=== PATIENT | male | born 1945 | race Caucasian/White ===

== ENCOUNTER 2018-05-25 12:37 | Inpatient (IN) ==
--- NOTE | 2018-05-25 13:11 | XR ---
EXAM DATE: 05/25/2018 1:09 PM EDT AGE/SEX: 72 years / Male INDICATIONS: Short of breath. Patient states [facility] CLINICAL DATA: This is the patient's initial encounter. Patient reports that signs and symptoms have been present for 1 day and indicates a pain score of 0/10. MEDICAL/SURGICAL HISTORY: None. CABG. Pleurodesis. 5 bypass, 5 stents. COMPARISON: No prior exams available for comparison. FINDINGS: Cardiomegaly and median sternotomy wires. Pacer/ICD device from a left subclavian transvenous approac h noted. Streaky left basilar airspace disease. CONCLUSION: Left lower lobe streaky parenchymal infiltrate. Electronically signed by: Vicente Reece MD 05/25/2018 1:10 PM EDT
--- NOTE | 2018-05-25 13:32 | CT ---
EXAM DATE: 05/25/2018 1:28 PM EDT AGE/SEX: 72 years / Male INDICATIONS: Patient had a dizzy spell causing patient to fall CLINICAL DATA: This is the patient's initial encounter. Patient reports that signs and symptoms have been present for 1 day and indicates a pain score of 5/10. MEDICAL/SURGICAL HISTORY: Congestive heart failure. Chronic obstructive pulmonary disease. Diabet es. hypertension CABG. RADIATION DOSE: 40.03 CTDI (mGy) COMPARISON: No prior exams available for comparison. TECHNIQUE: CT of the head without contrast. Using automated exposure control and adjustment of the mA and/or kV according to patient size, radiation dose was kept as low as reasonably achievable to ob tain optimal diagnostic quality images. DICOM format image data is available electronically for revi ew and comparison. FINDINGS: Cerebrum: The ventricles are normal for age. No evidence of midline shift, mass lesion, hemorrhage or acute infarction. No extraaxial fluid collections are seen. Posterior Fossa: The cerebellum and brainstem are intact. The 4th ventricle is midline. The cerebe llopontine angle is unremarkable. Extracranial: The visualized portion of the orbits is intact. Skull: The calvaria is intact. No evidence of skull fracture. CONCLUSION: 1. Negative CT Head non contrast. . Electronically signed by: Vicente Reece MD 05/25/2018 1:30 PM EDT
[2018-05-25 13:43] LABS: Baso % (Auto) 0.2 % (0.0-2.0); Eos % (Auto) 0.5 % (0.0-4.0); Hematocrit 28.9 % (39.0-51.0); Hemoglobin 10.1 gm/dL (13.0-17.0); Lymph # (Auto) 1.4 th/mm3 (1.0-4.8); Lymph % (Auto) 14.5 % (9.0-44.0); Mean Corpuscular HGB Conc 34.8 % (32.0-36.0); Mean Corpuscular Volume 109.2 fL (80.0-100.0); Mean Platelet Volume 7.2 fL (7.0-11.0); Mono # (Auto) 1.2 th/mm3 (0.0-0.9); Mono % (Auto) 12.3 % (0.0-8.0); Neut # (Auto) 6.9 th/mm3 (1.8-7.7); Neut % (Auto) 72.5 % (16.0-70.0); Platelet Count 186 th/mm3 (150-450); Red Blood Count 2.65 mil/mm3 (4.50-5.90); Red Cell Distribution Width 20.4 % (11.6-17.2); White Blood Count 9.6 th/mm3 (4.0-11.0)
--- NOTE | 2018-05-25 13:43 | ED ---
HPI General Chief Complaint: Fall Stated Complaint: Fall Time Seen by Provider: 05/25/18 12:39 Source: patient and EMS Mode of arrival: EMS Limitations: no limitations History of Present Illness HPI narrative: Patient is a 72-year-old male presenting to the emergency department for evaluation after having a syncopal episode. Patient was attempting to get his motorized scooter onto his car when he states his legs became weak, then his arms became weak and he fell backwards on to the ground hitting his head. Patient states he has been dizzy and weak for several days. Patient reports that he is tolerating fluids but has not been eating well, he states the antibiotics that he is taking for the infection to his left lower leg makes him feel nauseated. He has not vomited. He denies any abdominal pain , chest pain, fever, chills. Past medical history significant for COPD, hypertension, coronary artery disease, type 2 diabetes, patient is oxygen dependent on O2 at 2 L continuously. MD complaint: collapsed Onset (ago): minute(s) -: minutes(s) Prodromal symptoms: lightheaded and vertigo Context: during exertion Injuries sustained associated with event: head Current symptoms: lightheaded and weakness History: history of CAD and pacemaker Treatments prior to arrival: IV fluids Related Data Allergies Allergy/AdvReac Type Severity Reaction Status Date / Time MRI PRECAUTION AdvReac Severe PACEMAKER Uncoded 02/13/10 07:18 (02/13/2010 RV Review of Systems ROS: all other systems reviewed are negative [facility] Medical History Medical History CAD (coronary artery disease) (Chronic) CHF (congestive heart failure) (Chronic) COPD (chronic obstructive pulmonary disease) (Chronic) Diabetes (Chronic) Hypertension (Chronic) Paced cardiac rhythm (Chronic) Surgical History Surgical History Hx of CABG (Resolved) Stented coronary artery (Resolved) Social History Social History Substance History: No History of Abuse Second Hand Smoke Exposure: No Smoking Status: Current some day smoker Tobacco Type: Cigarettes How Often Do You Have a Drink Containing Alcohol: 4 or more times a week Recent Travel in [facility] within the Last 8 Weeks: No Recent Out of Country Travel within the Last 8 Weeks: No Immunization History Tetanus Immunization: >5 Years Hx Influenza Vaccine This Season: Yes Exam Narrative Exam Narrative: GENERAL: Alert, well-developed, well-nourished elderly male. Slightly disheveled, presenting in no acute distress. SKIN: Focused skin assessment warm/dry. HEAD: Atraumatic. Normocephalic. EYES: Pupils equal and round. No scleral icterus. No injection or drainage. ENT: No nasal bleeding or discharge. Mucous membranes pink and moist. NECK: Trachea midline. No JVD. CARDIOVASCULAR: Regular rate and rhythm. 2/6 systolic murmur appreciated. RESPIRATORY: No accessory muscle use. Diminished bilaterally in bases GASTROINTESTINAL: Abdomen soft, non-tender, nondistended. Hepatic and splenic margins not palpable. MUSCULOSKELETAL: No obvious deformities. No clubbing. No cyanosis. No edema. NEUROLOGICAL: Awake and alert. No obvious cranial nerve deficits. Motor grossly within normal limits. Normal speech. PSYCHIATRIC: Appropriate mood and affect; insight and judgment normal. Course Initial Documented Vital Signs Temperature 98.5 F 05/25/18 12:45 Pulse Rate 71 05/25/18 12:45 Respiratory Rate 18 05/25/18 12:45 Blood Pressure 138/62 05/25/18 12:45 Pulse Oximetry 96 05/25/18 12:45 Last Documented Vital Signs Temperature 98.5 F 05/25/18 12:45 Pulse Rate 71 05/25/18 12:45 Respiratory Rate 18 05/25/18 12:45 Blood Pressure 138/62 05/25/18 12:45 Pulse Oximetry 96 05/25/18 12:45 Medical Decision Making MDM Narrative Medical decision making narrative: Patient is a 72-year-old male that presented to emerge department after having a syncopal episode. Labs and imaging ordered and pending. IV access established, patient placed on telemetry monitoring continuous pulse oximetry. Initial EKG shows ventricular paced rhythm, this is reviewed by my attending physician. Patient's potassium level is 1.9, 40 MEQ ordered orally as well as IV. Patient was also given Mag ox 400mg PO x 1 dose. Chest x-ray shows left lower lobe streaky parenchymal infiltrate. Patient was treated empirically with Rocephin and azithromycin. CBC shows a significant bandemia. Stable anemia noted. CT scan of the head and neck are unremarkable. Patient will be admitted Medical Screen Exam Complete: Yes Emergency Medical Condition: Yes Differential Diagnosis Differential Diagnosis: Metabolic abnormality versus cardiac arrhythmia versus contusion versus concussion versus hemorrhage versus UTI versus other Medical Records Medical records reviewed: Yes I reviewed the patient's medical records. Lab Data Result diagrams: 05/25/18 12:54 05/25/18 12:54 Lab Results 05/25/18 05/25/18 05/25/18 Range/Units 12:54 12:54 12:54 WBC 9.6 (4.0-11.0) th/mm3 RBC 2.65 L (4.50-5.90) mil/mm3 Hgb 10.1 L (13.0-17.0) gm/dL Hct 28.9 L (39.0-51.0) % MCV 109.2 H (80.0-100.0) fL MCH 38.0 H (27.0-34.0) pg MCHC 34.8 (32.0-36.0) % RDW 20.4 H (11.6-17.2) % Plt Count 186 (150-450) th/mm3 MPV 7.2 (7.0-11.0) fL Prelim Diff (Auto) Slide review pending Neut % (Auto) 72.5 H (16.0-70.0) % Lymph % (Auto) 14.5 (9.0-44.0) % Warren % (Auto) 12.3 H (0.0-8.0) % Eos % (Auto) 0.5 (0.0-4.0) % Baso % (Auto) 0.2 (0.0-2.0) % Neut # (Auto) 6.9 (1.8-7.7) th/mm3 Lymph # (Auto) 1.4 (1.0-4.8) th/mm3 Warren # (Auto) 1.2 H (0.0-0.9) th/mm3 Eos # (Auto) 0.0 (0.0-0.4) th/mm3 Baso # (Auto) 0.0 (0.0-0.2) th/mm3 WBC Differential Manual diff final Seg Neuts % (Manual) 59 (16-70) % Band Neuts % (Manual) 12 H (0-6) % Lymphocytes % (Manual) 13 (9-44) % Monocytes % (Manual) 12 H (0-8) % Eosinophils % (Manual) 1 (0-4) % Basophils % (Manual) 1 (0-2) % Metamyelocytes % (Man) 1 (0-1) % Myelocytes % (Man) 1 H (0-0) % Abs Neuts (Manual) 7.0 (1.8-7.7) th/mm3 Nucleated RBCs/100 WBC 3 H (0-0) /100 WBC Differential Comment . Platelet Estimate Normal (Normal) Platelet Morphology Normal (Normal) PT 30.6 H (9.8-11.6) sec INR 3.0 Ratio APTT 31.7 H (24.3-30.1) sec Sodium 130 L (136-145) meq/L Potassium 1.9 L* (3.5-5.1) meq/L Chloride 83 L (98-107) meq/L Carbon Dioxide 37.0 H (21.0-32.0) meq/L Anion Gap 10 (5-15) meq/L BUN 18 (7-18) mg/dL Creatinine 1.38 H (0.60-1.30) mg/dL Estimated GFR 51 L (>89) mL/min Random Glucose 146 H (74-106) mg/dL Calcium 8.1 L (8.5-10.1) mg/dL Magnesium 1.6 (1.5-2.5) mg/dL Total Bilirubin 1.0 (0.2-1.0) mg/dL AST 22 (15-37) U/L ALT 20 (12-78) U/L Alkaline Phosphatase 52 (45-117) U/L Troponin I 0.03 (0.02-0.05) ng/mL B-Natriuretic Peptide (0-100) pg/mL Total Protein 6.6 (6.4-8.2) g/dL Albumin 3.2 L (3.4-5.0) g/dL Urine Color (Yellw/Straw) Urine Clarity (Clear) Urine pH (5.0-8.5) Ur Specific [place] (1.002-1.035) Urine Protein (Neg-Trace) mg/dL Urine Glucose (UA) (Negative) mg/dL Urine Ketones (Negative) mg/dL Urine Occult Blood (Negative) Urine Nitrate (Negative) Urine Bilirubin (Negative) Urine Urobilinogen (Less than 2) mg/dL Ur Leukocyte Esterase (Negative) Urine RBC (0-3) /hpf Urine WBC (0-5) /hpf Hyaline Casts (0-3) /lpf Micro UA Comment Ur Microscopic Review Urine Culture Comments 05/25/18 05/25/18 Range/Units 12:54 14:40 WBC (4.0-11.0) th/mm3 RBC (4.50-5.90) mil/mm3 Hgb (13.0-17.0) gm/dL Hct (39.0-51.0) % MCV (80.0-100.0) fL MCH (27.0-34.0) pg MCHC (32.0-36.0) % RDW (11.6-17.2) % Plt Count (150-450) th/mm3 MPV (7.0-11.0) fL Prelim Diff (Auto) Neut % (Auto) (16.0-70.0) % Lymph % (Auto) (9.0-44.0) % Warren % (Auto) (0.0-8.0) % Eos % (Auto) (0.0-4.0) % Baso % (Auto) (0.0-2.0) % Neut # (Auto) (1.8-7.7) th/mm3 Lymph # (Auto) (1.0-4.8) th/mm3 Warren # (Auto) (0.0-0.9) th/mm3 Eos # (Auto) (0.0-0.4) th/mm3 Baso # (Auto) (0.0-0.2) th/mm3 WBC Differential Seg Neuts % (Manual) (16-70) % Band Neuts % (Manual) (0-6) % Lymphocytes % (Manual) (9-44) % Monocytes % (Manual) (0-8) % Eosinophils % (Manual) (0-4) % Basophils % (Manual) (0-2) % Metamyelocytes % (Man) (0-1) % Myelocytes % (Man) (0-0) % Abs Neuts (Manual) (1.8-7.7) th/mm3 Nucleated RBCs/100 WBC (0-0) /100 WBC Differential Comment Platelet Estimate (Normal) Platelet Morphology (Normal) PT (9.8-11.6) sec INR Ratio APTT (24.3-30.1) sec Sodium (136-145) meq/L Potassium (3.5-5.1) meq/L Chloride (98-107) meq/L Carbon Dioxide (21.0-32.0) meq/L Anion Gap (5-15) meq/L BUN (7-18) mg/dL Creatinine (0.60-1.30) mg/dL Estimated GFR (>89) mL/min Random Glucose (74-106) mg/dL Calcium (8.5-10.1) mg/dL Magnesium (1.5-2.5) mg/dL Total Bilirubin (0.2-1.0) mg/dL AST (15-37) U/L ALT (12-78) U/L Alkaline Phosphatase (45-117) U/L Troponin I (0.02-0.05) ng/mL B-Natriuretic Peptide 66 (0-100) pg/mL Total Protein (6.4-8.2) g/dL Albumin (3.4-5.0) g/dL Urine Color Yellow (Yellw/Straw) Urine Clarity Clear (Clear) Urine pH 6.0 (5.0-8.5) Ur Specific [place] 1.012 (1.002-1.035) Urine Protein Negative (Neg-Trace) mg/dL Urine Glucose (UA) Negative (Negative) mg/dL Urine Ketones Negative (Negative) mg/dL Urine Occult Blood Negative (Negative) Urine Nitrate Negative (Negative) Urine Bilirubin Negative (Negative) Urine Urobilinogen Less than 2 (Less than 2) mg/dL Ur Leukocyte Esterase Negative (Negative) Urine RBC Less than 1 (0-3) /hpf Urine WBC 3 (0-5) /hpf Hyaline Casts 3 (0-3) /lpf Micro UA Comment Culture not ind Ur Microscopic Review Not Reportable Urine Culture Comments Culture not ind Imaging Data Radiologist's impression: Cervical Spine CT 05/25/18 12:49 CONCLUSION: 1. No acute fracture or subluxation. 2. Multilevel degenerative spondylosis of the lower cervical spine with multilevel facet arthropathy, as above. 3. Bulky carotid artery calcified plaque. Chest X-Ray 05/25/18 12:49 CONCLUSION: Left lower lobe streaky parenchymal infiltrate. Head CT 05/25/18 12:49 CONCLUSION: 1. Negative CT Head non contrast. . Discharge Plan Discharge Disposition Patient Disposition: 30 Still Patient Discharge Condition Condition: Stable Discharge Details Diagnosis: Syncope, Acute hypokalemia, Bandemia, Pneumonia Physicians Team ED Provider: Yodit Zhang ED Midlevel Provider: Angelita Villalpando Primary Care Provider: [facility],Physician 's Status ED Status: Admitted Patient
[2018-05-25 13:53] LABS: Activated Partial Thrombo Time 31.7 sec (24.3-30.1); Prothrombin Time 30.6 sec (9.8-11.6)
--- NOTE | 2018-05-25 14:02 | CT ---
EXAM DATE: 05/25/2018 1:35 PM EDT AGE/SEX: 72 years / Male INDICATIONS: Dizzy spell causing patient to fall CLINICAL DATA: This is the patient's initial encounter. Patient reports that signs and symptoms have been present for 1 day and indicates a pain score of 4/10. MEDICAL/SURGICAL HISTORY: Congestive heart failure. Chronic obstructive pulmonary disease. Di abetes. Hypertension CABG. RADIATION DOSE: 23.75 CTDI (mGy) COMPARISON: No prior exams available for comparison. TECHNIQUE: Contiguous axial images were obtained using helical multirow detector technique. The vol umetric data was post-processed with multiplanar reconstruction in oblique axial, sagittal, and coron al planes. Using automated exposure control and adjustment of the mA and/or kV according to patient s ize, radiation dose was kept as low as reasonably achievable to obtain optimal diagnostic quality nazia ges. DICOM format image data is available electronically for review and comparison. FINDINGS: OSSEOUS STRUCTURES: Vertebral body heights are maintained. Osseous structures are intact without evid ence for acute bony fracture. Dens is intact. ALIGNMENT: Sagittal alignment is maintained. There is a normal C1-2 relationship. Facets are normal ly aligned. SOFT TISSUES: There is no significant prevertebral soft tissue hematoma. No significant cervical lisbeth nopathy or gross mass. The thyroid appears unremarkable. Visualized lung apices demonstrate mild par aseptal emphysema.. Bulky carotid calcification bilaterally. ADDITIONAL FINDINGS: Multilevel facet hypertrophy most prominently on the right at C4-5. Multilevel d egenerative spondylosis most prominently at C5-6 and C6-7 with disc space narrowing and posterior dis c osteophytes. There is effacement of the left anterior lateral recess at C6-7 secondary to posterior osteophytes. CONCLUSION: 1. No acute fracture or subluxation. 2. Multilevel degenerative spondylosis of the lower cervical spine with multilevel facet arthropathy , as above. 3. Bulky carotid artery calcified plaque. Electronically signed by: Aj Velazquez MD 05/25/2018 2:01 PM EDT
[2018-05-25] MEDS ORDERED: Azithromycin Inj 500 MG in Sodium Chlor 0.9% Inj 250 ML IV.SIG STA (14:03)
[2018-05-25 14:13] LABS: Alanine Aminotransferase 20 U/L (12-78); Albumin 3.2 g/dL (3.4-5.0); Alkaline Phosphatase 52 U/L (45-117); Anion Gap 10 meq/L (5-15); Aspartate Aminotransferase 22 U/L (15-37); Blood Urea Nitrogen 18 mg/dL (7-18); Calcium 8.1 mg/dL (8.5-10.1); Chloride 83 meq/L (98-107); Glomerular Filtration Rate 51 mL/min (>89); Glucose,Random 146 mg/dL (74-106); Magnesium 1.6 mg/dL (1.5-2.5); Sodium 130 meq/L (136-145); Total Protein 6.6 g/dL (6.4-8.2); Troponin I 0.03 ng/mL (0.02-0.05)
[2018-05-25 14:21] LABS: Eosinophils 1 % (0-4); Lymphocytes 13 % (9-44); Metamyelocytes 1 % (0-1); Monocytes 12 % (0-8); Myelocytes 1 % (0-0); Platelet Estimate Normal (Normal); Platelet Morphology Normal (Normal); Potassium 1.9 meq/L (3.5-5.1); Tallied Nucleated RBC 3 (0-0)
[2018-05-25] MEDS ORDERED: Magnesium Oxide 400 MG Tablet PO ONE (14:25)
[2018-05-25 15:19] LABS: Bilirubin,Urine Negative (Negative); Clarity,Urine Clear (Clear); Color,Urine Yellow (Yellw/Straw); Glucose,Urine (UA) Negative (Negative); Hyaline Casts,Urine 3 /lpf (0-3); Leukocyte Esterase,Urine Negative (Negative); Nitrite,Urine Negative (Negative); Specific Gravity,Urine 1.012 (1.002-1.035)
--- NOTE | 2018-05-25 16:20 | P.HP ---
History of Present Illness Primary Care Physician: [facility] History of Present Illness: 72-year-old white male being her for severe hypokalemia and presyncope. Patient is not a reliable historian. Patient was in his usual state of health until earlier today when he was exiting 1 of his doctors offices at the [place] when he is arms and legs began tremoring and was unable to maintain his balance and fell backwards landing on his bottom breaking his fall and then striking his head. He denies having any substantial headaches or any nausea vomiting post fall. Denies having any coughing or shortness of breath or fevers. Says some people came to help him and called 911 and brought him to the ER here. Patient says he is taking an antibiotic for a left lower leg infection. He smells very malodorous and admits that he has not taken a full shower or a full bath, says he is only doing cloth based wiping only on his torso and not his left leg. Says he has a nurse coming out about 3 times a week to address his left leg. He thinks he is taking doxycycline. Says he takes a number of medications but cannot know their names. Lives by himself, stepdaughter is present part-time. Says he wears 2 L of oxygen at home. Pt says he drinks 1-2 drinks each night. Says he takes Coumadin for A. fib. In the Emergency department he had a bandemia noted but was afebrile with no elevated white count. EKG which and apparently reviewed showed a paced rhythm. CXR which I independently reviewed showed no acute infiltrates, radiology however read a left streaky infiltrate. CT head was performed which showed no acute findings. [facility] - History History Provided By: Patient - Medical History Medical History: Medical History (Last Updated 05/25/18 @ 13:40 by LINNEA Kang) CAD (coronary artery disease) CHF (congestive heart failure) COPD (chronic obstructive pulmonary disease) Diabetes Hypertension Paced cardiac rhythm - Surgical History Surgical History: Surgical History (Last Updated 05/25/18 @ 13:41 by LINNEA Kang) Hx of CABG Stented coronary artery - Family History Family History: Family History (Last Updated 05/25/18 @ 16:19 by Jay Martell MD) Other Coronary artery disease Diabetes - Tobacco History Second Hand Smoke Exposure: No Tobacco Use In Past 30 Days: Yes Smoking Status: Current some day smoker Tobacco Type: Cigarettes - Alcohol History How Often Do You Have a Drink Containing Alcohol: 4 or more times a week - Substance Use History Substance History: No History of Abuse - Travel History Recent Travel in the [place] Within the Last 8 Weeks: No Recent Travel Out of the Country Within the Last 8 Weeks: No - Immunization History Tetanus Immunization: >5 Years Hx Influenza Vaccine This Season: Yes Medications and Allergies Active Medications: Active Medications Potassium Chloride (Kcl 20 Meq Premix Inj) 20 meq in 100 mls @ 50 mls/hr IV.SIG Q2H HE Stop: 05/25/18 18:29 Sodium Chloride (Ns Flush) 2 ml IV.FLUSH BID HE Sodium Chloride (Ns Flush) 2 ml IV.FLUSH PRN PRN PRN Reason: FLUSH AFTER USING IV ACCESS Allergies Allergy/AdvReac Type Severity Reaction Status Date / Time MRI PRECAUTION AdvReac Severe PACEMAKER Uncoded 02/13/10 07:18 (02/13/2010 RV Home Medications Medication Instructions Recorded Confirmed Type Aspir-81 05/25/18 History Tylenol-Codeine #3 05/25/18 History albuterol sulfate 05/25/18 History capsaicin 1 applic TOPICAL TID 05/25/18 05/25/18 History carvedilol 25 mg PO DAILY 05/25/18 05/25/18 History diclofenac sodium 4 g TOPICAL QID 05/25/18 05/25/18 History doxycycline hyclate 100 mg PO BID 05/25/18 05/25/18 History furosemide [Lasix] 40 mg PO DAILY 05/25/18 05/25/18 History gabapentin 600 mg PO DAILY 05/25/18 05/25/18 History isosorbide mononitrate 30 mg PO DAILY 05/25/18 05/25/18 History metolazone 5 mg PO EVERY OTHER DAY 05/25/18 05/25/18 History niacin 500 mg PO BID 05/25/18 05/25/18 History omeprazole 20 mg PO DAILY 05/25/18 05/25/18 History ondansetron TID 05/25/18 History potassium chloride 10 meq PO BID 05/25/18 05/25/18 History ropinirole 0.5 mg PO BID 05/25/18 05/25/18 History ropinirole 1 mg PO DAILY 05/25/18 05/25/18 History rosuvastatin 40 mg PO DAILY 05/25/18 05/25/18 History sertraline 100 mg PO DAILY 05/25/18 05/25/18 History silver sulfadiazine 1 applic TOPICAL DAILY 05/25/18 05/25/18 History trazodone 300 mg PO DAILY PRN 05/25/18 05/25/18 History warfarin 5 mg PO Q OTHER DAY 05/25/18 05/25/18 History warfarin 5 mg PO QTUTHSA 05/25/18 05/25/18 History Exam Vital signs: Vital Signs 05/25/18 12:45 Temperature 98.5 F Pulse Rate 71 Respiratory Rate 18 Blood Pressure 138/62 Pulse Oximetry 96 Intake & Output 05/24/18 05/25/18 05/25/18 18:59 06:59 18:59 Weight 115.666 kg Narrative: VS: afebrile GENERAL: Obese, disheveled male, lying in bed, and reclined position SKIN: Warm and dry. EYES: No scleral icterus. No injection or drainage. ENT: NC, NT CARDIOVASCULAR: Regular rate and rhythm. no murmurs RESPIRATORY: No accessory muscle use. Clear to auscultation. Breath sounds equal bilaterally. GASTROINTESTINAL: Abdomen soft, non-tender, nondistended. Extremities: No clubbing, cyanosis, or edema. No obvious deformities. MUSCULOSKELETAL: grossly intact ROM with 5/5 strength in upper and lower extremities proximally; adequate muscle bulk and tone for age and habitus NEUROLOGICAL: Awake and alert. No obvious cranial nerve deficits. No facial droop nor slurred speech noted. PSYCHIATRIC: Appropriate mood and affect; insight and judgment normal. Results - Labs CBC & Chem 7: 05/25/18 12:54 05/25/18 12:54 Labs: Laboratory Results - last 24 hr 05/25/18 05/25/18 05/25/18 12:54 12:54 12:54 WBC 9.6 RBC 2.65 L Hgb 10.1 L Hct 28.9 L MCV 109.2 H MCH 38.0 H MCHC 34.8 RDW 20.4 H Plt Count 186 MPV 7.2 Prelim Diff (Auto) Slide review pending Neut % (Auto) 72.5 H Lymph % (Auto) 14.5 [place] % (Auto) 12.3 H Eos % (Auto) 0.5 Baso % (Auto) 0.2 Neut # (Auto) 6.9 Lymph # (Auto) 1.4 [place] # (Auto) 1.2 H Eos # (Auto) 0.0 Baso # (Auto) 0.0 WBC Differential Manual diff final Seg Neuts % (Manual) 59 Band Neuts % (Manual) 12 H Lymphocytes % (Manual) 13 Monocytes % (Manual) 12 H Eosinophils % (Manual) 1 Basophils % (Manual) 1 Metamyelocytes % (Man) 1 Myelocytes % (Man) 1 H Abs Neuts (Manual) 7.0 Nucleated RBCs/100 WBC 3 H Differential Comment . Platelet Estimate Normal Platelet Morphology Normal PT 30.6 H INR 3.0 APTT 31.7 H Sodium 130 L Potassium 1.9 L* Chloride 83 L Carbon Dioxide 37.0 H Anion Gap 10 BUN 18 Creatinine 1.38 H Estimated GFR 51 L Random Glucose 146 H Calcium 8.1 L Magnesium 1.6 Total Bilirubin 1.0 AST 22 ALT 20 Alkaline Phosphatase 52 Troponin I 0.03 B-Natriuretic Peptide Total Protein 6.6 Albumin 3.2 L Urine Color Urine Clarity Urine pH Ur Specific [place] Urine Protein Urine Glucose (UA) Urine Ketones Urine Occult Blood Urine Nitrate Urine Bilirubin Urine Urobilinogen Ur Leukocyte Esterase Urine RBC Urine WBC Hyaline Casts Micro UA Comment Ur Microscopic Review Urine Culture Comments 05/25/18 05/25/18 12:54 14:40 WBC RBC Hgb Hct MCV MCH MCHC RDW Plt Count MPV Prelim Diff (Auto) Neut % (Auto) Lymph % (Auto) [place] % (Auto) Eos % (Auto) Baso % (Auto) Neut # (Auto) Lymph # (Auto) [place] # (Auto) Eos # (Auto) Baso # (Auto) WBC Differential Seg Neuts % (Manual) Band Neuts % (Manual) Lymphocytes % (Manual) Monocytes % (Manual) Eosinophils % (Manual) Basophils % (Manual) Metamyelocytes % (Man) Myelocytes % (Man) Abs Neuts (Manual) Nucleated RBCs/100 WBC Differential Comment Platelet Estimate Platelet Morphology PT INR APTT Sodium Potassium Chloride Carbon Dioxide Anion Gap BUN Creatinine Estimated GFR Random Glucose Calcium Magnesium Total Bilirubin AST ALT Alkaline Phosphatase Troponin I B-Natriuretic Peptide 66 Total Protein Albumin Urine Color Yellow Urine Clarity Clear Urine pH 6.0 Ur Specific [place] 1.012 Urine Protein Negative Urine Glucose (UA) Negative Urine Ketones Negative Urine Occult Blood Negative Urine Nitrate Negative Urine Bilirubin Negative Urine Urobilinogen Less than 2 Ur Leukocyte Esterase Negative Urine RBC Less than 1 Urine WBC 3 Hyaline Casts 3 Micro UA Comment Culture not ind Ur Microscopic Review Not Reportable Urine Culture Comments Culture not ind - Imaging Impressions Cervical Spine CT 05/25/18 12:49 CONCLUSION: 1. No acute fracture or subluxation. 2. Multilevel degenerative spondylosis of the lower cervical spine with multilevel facet arthropathy, as above. 3. Bulky carotid artery calcified plaque. Chest X-Ray 05/25/18 12:49 CONCLUSION: Left lower lobe streaky parenchymal infiltrate. Head CT 05/25/18 12:49 CONCLUSION: 1. Negative CT Head non contrast. . Caprini VTE Risk Assessment Caprini VTE Risk Assessment: Moderate/High Risk (score >= 2) VTE Pharmacological Exception Reason: High risk for bleeding Caprini Risk Assessment Model: Point Value = 1 Point Value = 2 Point Value = 3 Point Value = 5 Age 41-60 Minor surgery BMI > 25 kg/m2 Swollen legs Varicose veins or History of unexplained or recurrent spontaneous Oral contraceptives or hormone replacement Sepsis (< 1 month) Serious lung disease, including pneumonia (< 1 month) Abnormal pulmonary function Acute myocardial infarction Congestive heart failure (< 1 month) History of inflammatory bowel disease Medical patient at bed rest Age 61-74 Arthroscopic surgery Major open surgery (> 45 min) Laparoscopic surgery (> 45 min) Malignancy Confined to bed (> 72 hours) Immobilizing plaster cast Central venous access Age >= 75 History of VTE Family history of VTE Factor V Leiden Prothrombin [id number] Lupus anticoagulant Anticardiolipin antibodies Elevated serum homocysteine Heparin-induced thrombocytopenia Other congenital or acquired thrombophilia Stroke (< 1 month) Elective arthroplasty Hip, pelvis, or leg fracture Acute spinal cord injury (< 1 month) Prophylaxis Regimen: Total Risk Factor Score Risk Level Prophylaxis Regimen 0-1 Low Early ambulation 2 Moderate Order ONE of the following: *Sequential Compression Device (SCD) *Heparin 5000 units SQ BID 3-4 Higher Order ONE of the following medications: *Heparin 5000 units SQ TID *Enoxaparin/Lovenox 40 mg SQ daily (WT < 150 kg, CrCl > 30 mL/min) *Enoxaparin/Lovenox 30 mg SQ daily (WT < 150 kg, CrCl > 10-29 mL/min) *Enoxaparin/Lovenox 30 mg SQ BID (WT < 150 kg, CrCl > 30 mL/min) AND/OR *Sequential Compression Device (SCD) 5 or more Highest Order ONE of the following medications: *Heparin 5000 units SQ TID (Preferred with Epidurals) *Enoxaparin/Lovenox 40 mg SQ daily (WT < 150 kg, CrCl > 30 mL/min) *Enoxaparin/Lovenox 30 mg SQ daily (WT < 150 kg, CrCl > 10-29 mL/min) *Enoxaparin/Lovenox 30 mg SQ BID (WT < 150 kg, CrCl > 30 mL/min) AND *Sequential Compression Device (SCD) Assessment and Plan - Plan 72-year-old white male being admitted for severe hypokalemia with presyncope Severe hypokalemia and acute hyponatremia ML -Likely the cause of his symptoms, could be worsened with alcohol intake and diuretics 1.9 in the emergency department, given replacement in ER, given magnesium as well, -NS + KCL IVFs -Recheck in a.m. Coronary artery disease /CHF /A. fib Hypertension Presyncope home Coreg, metolazone -Orthostatic vital signs -Resume home Coumadin, with INR being therapeutic Left lower leg cellulitis -At this point clinically resolved and legs appear to have chronic venous status /chronic dermatitis findings COPD Albuterol as needed, oxygen supplementation as needed, 2 L at home at baseline Anxiety - resume home sertraline and trazodone (at lower dose) I independently reviewed the chest x-ray and I do not feel that he has true pneumonia clinically nor radiographically. The patient is on doxycycline has no respiratory symptoms. I feel that his bandemia may be coming from his severe hypokalemia stress-induced state. No elevated white count, will monitor , currently afebrile On Coumadin
[2018-05-25] MEDS: Potassium Chlor 20 mEq Premix 20 MEQ/100 ML PIGGYBACK IV.SIG SCH ×2 (16:34→18:43)
[2018-05-25] MEDS ORDERED: RESP: Albuterol Concentrated 2.5 MG/0.5 ML Neb NEB PRN (16:55)
[2018-05-25] MEDS ORDERED: Potassium Chloride Inj 10 MEQ in Sod Chloride 0.9% Inj 1,000 ML IV.CONT SCH (20:00)
[2018-05-25] MEDS ORDERED: DICLOFENAC SODIUM 4 GM TOPICAL SCH (23:00)
[2018-05-25] MEDS: Acetaminophen 325 MG Tablet PO PRN (23:27)
[2018-05-25] MEDS: Potassium Chloride 10 MEQ ER Capsule PO SCH (23:28)
[2018-05-25] MEDS: Carvedilol 12.5 MG Tablet PO SCH (23:28)
[2018-05-26] MEDS ORDERED: Ketorolac Inj 30 MG/ML (IVP) Vial IV.PUSH ONE (00:11)
[2018-05-26 07:40] LABS: Calcium 8.1 mg/dL (8.5-10.1); Carbon Dioxide 35.7 meq/L (21.0-32.0)
[2018-05-26 08:16] LABS: Potassium 2.3 meq/L (3.5-5.1)
[2018-05-26] MEDS ORDERED: Isosorbide Mononitrate 30 MG ER 24HR Tablet (Imdur) PO SCH (09:00)
[2018-05-26] MEDS: Furosemide 40 MG Tablet PO SCH (09:24)
[2018-05-26] MEDS: Carvedilol 12.5 MG Tablet PO SCH ×2 (09:24→21:29)
[2018-05-26] MEDS: Sertraline 100 MG Tablet PO SCH (09:25)
[2018-05-26] MEDS: Pantoprazole Sodium 20 MG DR Tablet PO SCH (09:25)
[2018-05-26] MEDS: Potassium Chloride 10 MEQ ER Capsule PO SCH ×2 (09:25→21:14)
[2018-05-26] MEDS ORDERED: Potassium Chloride Inj 20 MEQ, Magnesium Sulfate Inj 2 GM in Sod Chloride 0.9% Inj 1,00... IV.SIG ONE (11:00)
--- NOTE | 2018-05-26 12:01 | ECG ---
Date Performed: 05/25/2018 Time Performed: 12:49:22 PTAGE: 72 years EK% Ventricular Pacing Suspected Underlying Rhythm is atrial firbrillation ABNORMAL RHYTHM ECG PREVIOUS TRACING : 02/13/2010 02.34 Since the previous tracing, no significant change noted DOCTOR: Destin Small Interpretating Date/Time 05/26/2018 11:59:13
--- NOTE | 2018-05-26 13:11 | P.PN ---
Subjective Interval history: Nursing denies any deterioration since last night except for potassium of being low at 2.3. Patient himself says he feels much better today. Physical Exam Vital signs: Vital Signs 05/25/18 16:55 05/25/18 18:04 05/25/18 18:08 Temperature 98.8 F 98.3 F Pulse Rate 77 78 Respiratory Rate 20 18 Blood Pressure 138/62 128/66 Pulse Oximetry 97 05/25/18 20:00 05/26/18 00:00 05/26/18 04:00 Temperature 97.3 F L 97.3 F L 97.1 F L Pulse Rate 75 85 69 Respiratory Rate 18 18 18 Blood Pressure 183/88 H 112/63 112/57 L Pulse Oximetry 96 99 94 L 05/26/18 04:05 05/26/18 04:10 Temperature Pulse Rate 75 78 Respiratory Rate Blood Pressure 82/51 L 79/47 L Pulse Oximetry 94 L 97 Intake & Output 05/25/18 05/26/18 05/26/18 18:59 06:59 18:59 Intake Total 100 / 100 480 / 480 415 / 415 Output Total 600 / 600 Balance 100 / 100 -120 / -120 415 / 415 Weight 115.666 kg 119 kg Intake: IV 100 / 100 415 / 415 KCl Inj 10 MEQ In NS Inj 1,000 415 / 415 ML @ 42 mls/hr IV.CONT .[id number] [facility] Rx#:[id number] KCl 20 mEq Premix Inj 20 meq In 100 / 100 100 ml @ 50 mls/hr IV.SIG Q2H HE Rx#:[id number] Oral 480 / 480 Output: Urine 600 / 600 Other: # Voids 1 # Bowel Movements 0 Narrative: 4/5 proximal upper extremity strength bilaterally Awake alert Clear lungs bilaterally, unlabored breathing Results - Labs CBC & Chem 7: 05/25/18 12:54 05/26/18 06:10 Laboratory Results - last 24 hr 05/25/18 05/25/18 05/25/18 12:54 12:54 12:54 WBC 9.6 RBC 2.65 L Hgb 10.1 L Hct 28.9 L MCV 109.2 H MCH 38.0 H MCHC 34.8 RDW 20.4 H Plt Count 186 MPV 7.2 Prelim Diff (Auto) Slide review pending Neut % (Auto) 72.5 H Lymph % (Auto) 14.5 [place] % (Auto) 12.3 H Eos % (Auto) 0.5 Baso % (Auto) 0.2 Neut # (Auto) 6.9 Lymph # (Auto) 1.4 [place] # (Auto) 1.2 H Eos # (Auto) 0.0 Baso # (Auto) 0.0 WBC Differential Manual diff final Seg Neuts % (Manual) 59 Band Neuts % (Manual) 12 H Lymphocytes % (Manual) 13 Monocytes % (Manual) 12 H Eosinophils % (Manual) 1 Basophils % (Manual) 1 Metamyelocytes % (Man) 1 Myelocytes % (Man) 1 H Abs Neuts (Manual) 7.0 Nucleated RBCs/100 WBC 3 H Differential Comment . Platelet Estimate Normal Platelet Morphology Normal PT 30.6 H INR 3.0 APTT 31.7 H Sodium 130 L Potassium 1.9 L* Chloride 83 L Carbon Dioxide 37.0 H Anion Gap 10 BUN 18 Creatinine 1.38 H Estimated GFR 51 L POC Glucose Random Glucose 146 H Calcium 8.1 L Magnesium 1.6 Total Bilirubin 1.0 AST 22 ALT 20 Alkaline Phosphatase 52 Troponin I 0.03 B-Natriuretic Peptide Total Protein 6.6 Albumin 3.2 L Urine Color Urine Clarity Urine pH Ur Specific [place] Urine Protein Urine Glucose (UA) Urine Ketones Urine Occult Blood Urine Nitrate Urine Bilirubin Urine Urobilinogen Ur Leukocyte Esterase Urine RBC Urine WBC Hyaline Casts Micro UA Comment Ur Microscopic Review Urine Culture Comments 05/25/18 05/25/18 05/25/18 12:54 14:40 21:20 WBC RBC Hgb Hct MCV MCH MCHC RDW Plt Count MPV Prelim Diff (Auto) Neut % (Auto) Lymph % (Auto) [place] % (Auto) Eos % (Auto) Baso % (Auto) Neut # (Auto) Lymph # (Auto) [place] # (Auto) Eos # (Auto) Baso # (Auto) WBC Differential Seg Neuts % (Manual) Band Neuts % (Manual) Lymphocytes % (Manual) Monocytes % (Manual) Eosinophils % (Manual) Basophils % (Manual) Metamyelocytes % (Man) Myelocytes % (Man) Abs Neuts (Manual) Nucleated RBCs/100 WBC Differential Comment Platelet Estimate Platelet Morphology PT INR APTT Sodium Potassium Chloride Carbon Dioxide Anion Gap BUN Creatinine Estimated GFR POC Glucose 202 H Random Glucose Calcium Magnesium Total Bilirubin AST ALT Alkaline Phosphatase Troponin I B-Natriuretic Peptide 66 Total Protein Albumin Urine Color Yellow Urine Clarity Clear Urine pH 6.0 Ur Specific [place] 1.012 Urine Protein Negative Urine Glucose (UA) Negative Urine Ketones Negative Urine Occult Blood Negative Urine Nitrate Negative Urine Bilirubin Negative Urine Urobilinogen Less than 2 Ur Leukocyte Esterase Negative Urine RBC Less than 1 Urine WBC 3 Hyaline Casts 3 Micro UA Comment Culture not ind Ur Microscopic Review Not Reportable Urine Culture Comments Culture not ind 05/26/18 06:10 WBC RBC Hgb Hct MCV MCH MCHC RDW Plt Count MPV Prelim Diff (Auto) Neut % (Auto) Lymph % (Auto) [place] % (Auto) Eos % (Auto) Baso % (Auto) Neut # (Auto) Lymph # (Auto) [place] # (Auto) Eos # (Auto) Baso # (Auto) WBC Differential Seg Neuts % (Manual) Band Neuts % (Manual) Lymphocytes % (Manual) Monocytes % (Manual) Eosinophils % (Manual) Basophils % (Manual) Metamyelocytes % (Man) Myelocytes % (Man) Abs Neuts (Manual) Nucleated RBCs/100 WBC Differential Comment Platelet Estimate Platelet Morphology PT INR APTT Sodium 131 L Potassium 2.3 L* Chloride 85 L Carbon Dioxide 35.7 H Anion Gap 10 BUN 16 Creatinine 1.24 Estimated GFR 57 L POC Glucose Random Glucose 141 H Calcium 8.1 L Magnesium Total Bilirubin AST ALT Alkaline Phosphatase Troponin I B-Natriuretic Peptide Total Protein Albumin Urine Color Urine Clarity Urine pH Ur Specific [place] Urine Protein Urine Glucose (UA) Urine Ketones Urine Occult Blood Urine Nitrate Urine Bilirubin Urine Urobilinogen Ur Leukocyte Esterase Urine RBC Urine WBC Hyaline Casts Micro UA Comment Ur Microscopic Review Urine Culture Comments - Imaging Impressions Cervical Spine CT 05/25/18 12:49 CONCLUSION: 1. No acute fracture or subluxation. 2. Multilevel degenerative spondylosis of the lower cervical spine with multilevel facet arthropathy, as above. 3. Bulky carotid artery calcified plaque. Chest X-Ray 05/25/18 12:49 CONCLUSION: Left lower lobe streaky parenchymal infiltrate. Head CT 05/25/18 12:49 CONCLUSION: 1. Negative CT Head non contrast. . Assessment and Plan - Plan 72-year-old white male being admitted for severe hypokalemia with presyncope Severe hypokalemia and acute hyponatremia ML -likely combination of alcohol intake and diuretics -Mildly improved 2.3 - adding on mg and KCL -recheck in AM Coronary artery disease /CHF /A. fib Hypertension Presyncope home Coreg, metolazone -Orthostatic vital signs -home Coumadin, with INR being therapeutic Left lower leg cellulitis -At this point clinically resolved and legs appear to have chronic venous status /chronic dermatitis findings COPD Albuterol as needed, oxygen supplementation as needed, 2 L at home at baseline Anxiety - home sertraline and trazodone (at lower dose) On Coumadin
[2018-05-26] MEDS: Gabapentin 300 MG Capsule PO SCH (21:29)
[2018-05-27 06:02] LABS: Calcium 8.6 mg/dL (8.5-10.1)
[2018-05-27 06:07] LABS: Potassium 2.4 meq/L (3.5-5.1)
[2018-05-27] MEDS ORDERED: Potassium Chloride 25 MEQ Effervescent Tablet PO ONE (06:14)
[2018-05-27] MEDS: Potassium Chlor 20 mEq Premix 20 MEQ/100 ML PIGGYBACK IV.SIG SCH ×2 (06:37→09:24)
[2018-05-27] MEDS: Furosemide 40 MG Tablet PO SCH (09:21)
[2018-05-27] MEDS: Sertraline 100 MG Tablet PO SCH (09:23)
[2018-05-27] MEDS: Potassium Chloride 10 MEQ ER Capsule PO SCH (09:23)
[2018-05-27] MEDS: Pantoprazole Sodium 20 MG DR Tablet PO SCH (09:23)
[2018-05-27] MEDS: Carvedilol 12.5 MG Tablet PO SCH ×2 (09:23→21:55)
[2018-05-27] MEDS: metOLazone 5 MG Tablet PO SCH (09:25)
[2018-05-27] MEDS: Lisinopril 5 MG Tablet PO SCH (10:54)
--- NOTE | 2018-05-27 15:11 | P.PN ---
Subjective Interval history: Nursing denies any deterioration since last night. Patient himself has no new complaints. His potassium level still low. Says he was taking water pills meaning his diuretics for lower extremity edema. Physical Exam Vital signs: Vital Signs 05/26/18 16:00 05/26/18 16:54 05/26/18 20:00 Temperature 97.6 F 98 F Pulse Rate 73 75 71 Respiratory Rate 17 16 Blood Pressure 103/61 131/62 Pulse Oximetry 97 98 05/27/18 00:00 05/27/18 04:00 05/27/18 08:00 Temperature 98.2 F 98.3 F 97.2 F L Pulse Rate 69 70 72 Respiratory Rate 16 16 20 Blood Pressure 97/52 L 108/52 L 104/51 L Pulse Oximetry 99 99 98 05/27/18 09:00 05/27/18 12:00 Temperature 97.3 F L Pulse Rate 71 70 Respiratory Rate 19 Blood Pressure 104/57 L Pulse Oximetry 98 Intake & Output 05/26/18 05/27/18 05/27/18 18:59 06:59 18:59 Intake Total 2389 / 2389 580 / 580 200 / 200 Output Total 1800 / 1800 1300 / 1300 Balance 589 / 589 -720 / -720 200 / 200 Weight 119.4 kg Intake: IV 1429 / 1429 100 / 100 200 / 200 KCl Inj 10 MEQ In NS Inj 1,000 415 / 415 ML @ 42 mls/hr IV.CONT .[id number] [facility] Rx#:[id number] KCl 20 mEq Premix Inj 20 meq In 200 / 200 100 ml @ 50 mls/hr IV.SIG Q2H [facility] Rx#:[id number] KCl Inj 20 MEQ Magnesium 1014 / 1014 Sulfate Inj 2 GM In NS Inj 1, 000 ML @ 500 mls/hr IV.SIG ONCE ONE Rx#:[id number] Oral 960 / 960 480 / 480 Output: Urine 1800 / 1800 1300 / 1300 Other: # Voids 2 # Bowel Movements 0 Narrative: Heart sounds regular rhythm, no murmurs Clear lungs bilaterally, unlabored breathing No lower extremity edema Results - Labs CBC & Chem 7: 05/25/18 12:54 05/27/18 05:08 Laboratory Results - last 24 hr 05/27/18 05/27/18 05:08 05:08 Sodium 134 L Potassium 2.4 L* Chloride 88 L Carbon Dioxide 38.0 H Anion Gap 8 BUN 16 Creatinine 1.28 Estimated GFR 55 L Random Glucose 162 H Calcium 8.6 Magnesium 2.2 D Assessment and Plan - Plan 72-year-old white male being admitted for severe hypokalemia with presyncope Severe hypokalemia and acute hyponatremia likely combination of alcohol intake and diuretics -Still persisting, will double potassium and magnesium p.o. intake, and on Spironolactone and lisinopril, hold metolazone and Lasix by half down to 20 mg daily -recheck in AM as well as BMP ML - likely 2/2 diuretics, will hold Coronary artery disease /CHF /A. fib Hypertension Presyncope home Coreg, metolazone -Orthostatic vital signs -home Coumadin, with INR being therapeutic Left lower leg cellulitis -At this point clinically resolved and legs appear to have chronic venous status /chronic dermatitis findings, continue home doxycycline COPD Albuterol as needed, oxygen supplementation as needed, 2 L at home at baseline Anxiety - home sertraline and trazodone (at lower dose) On Coumadin
[2018-05-27] MEDS: Spironolactone 25 MG Tablet PO SCH (17:55)
[2018-05-27] MEDS: Gabapentin 300 MG Capsule PO SCH (21:54)
[2018-05-28] MEDS: Potassium Chloride 10 MEQ ER Capsule PO SCH (00:35)
[2018-05-28 05:33] LABS: Hematocrit 25.3 % (39.0-51.0); Hemoglobin 8.7 gm/dL (13.0-17.0); Mean Corpuscular HGB Conc 34.5 % (32.0-36.0); Mean Corpuscular Hemoglobin 37.8 pg (27.0-34.0); Mean Corpuscular Volume 109.7 fL (80.0-100.0); Mean Platelet Volume 7.1 fL (7.0-11.0); Platelet Count 143 th/mm3 (150-450); White Blood Count 7.2 th/mm3 (4.0-11.0)
[2018-05-28 05:57] LABS: Carbon Dioxide 36.6 meq/L (21.0-32.0); Potassium 3.1 meq/L (3.5-5.1)
[2018-05-28] MEDS ORDERED: Sodium Chlor 0.9% Inj 500 ML IV.SIG SCH ×2 (07:00→19:00)
[2018-05-28] MEDS: Sertraline 100 MG Tablet PO SCH (08:38)
[2018-05-28] MEDS: Furosemide 20 MG Tablet PO SCH (08:38)
[2018-05-28] MEDS: Lisinopril 5 MG Tablet PO SCH (08:38)
[2018-05-28] MEDS: Pantoprazole Sodium 20 MG DR Tablet PO SCH (08:38)
[2018-05-28] MEDS: Carvedilol 12.5 MG Tablet PO SCH ×2 (08:38→21:05)
[2018-05-28] MEDS: Spironolactone 25 MG Tablet PO SCH ×2 (08:38→19:30)
--- NOTE | 2018-05-28 13:04 | P.PN ---
Subjective Interval history: Patient seen and examined this morning. 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 He denies syncopal symptoms, chest pain , shortness of breath. He has chronic back and leg pain for many years. He uses 2 L oxygen at home. He lives by himself and states that he was able to perform all his ADLs. Physical Exam Vital signs: Vital Signs 05/27/18 16:00 05/27/18 17:39 05/27/18 20:00 Temperature 96.8 F L 97.3 F L Pulse Rate 71 86 80 Respiratory Rate 20 20 Blood Pressure 104/65 101/56 L Pulse Oximetry 98 94 L 05/28/18 00:00 05/28/18 04:00 05/28/18 08:00 Temperature 97.5 F L 97.9 F 96.4 F L Pulse Rate 71 67 72 Respiratory Rate 18 18 20 Blood Pressure 94/49 L 86/56 L 99/53 L Pulse Oximetry 97 95 99 05/28/18 09:00 05/28/18 12:00 05/28/18 12:24 Temperature 97.1 F L Pulse Rate 54 L 73 Respiratory Rate 19 Blood Pressure 98/56 L Pulse Oximetry 98 99 Intake & Output 05/27/18 05/28/18 05/28/18 18:59 06:59 18:59 Intake Total 1160 / 1160 480 / 480 Output Total 150 / 150 Balance 1160 / 1160 330 / 330 Weight 121.8 kg 115.747 kg Intake: IV 200 / 200 KCl 20 mEq Premix Inj 20 meq In 200 / 200 100 ml @ 50 mls/hr IV.SIG Q2H HE Rx#:[id number] Oral 960 / 960 480 / 480 Output: Urine 150 / 150 Other: # Voids 4 1 Date of Last Bowel Movement 05/27/18 # Bowel Movements 0 Narrative: Gen: Patient lying in bed in NAD, nasal cannula in place Skin: Warm and dry CV: Regular rate and rhythm Resp: CTAB, unlabored breathing Abd: Normoactive bowel sounds, NTTP Ext: No cyanosis or edema, calves nontender to palpation Psych: Normal affect Results - Labs CBC & Chem 7: 05/28/18 05:18 05/28/18 05:18 Laboratory Results - last 24 hr 05/28/18 05/28/18 05:18 05:18 WBC 7.2 RBC 2.30 L Hgb 8.7 L Hct 25.3 L MCV 109.7 H MCH 37.8 H MCHC 34.5 RDW 20.0 H Plt Count 143 L MPV 7.1 Sodium 131 L Potassium 3.1 L Chloride 88 L Carbon Dioxide 36.6 H Anion Gap 6 BUN 17 Creatinine 1.51 H Estimated GFR 46 L Random Glucose 133 H Calcium 8.0 L Assessment and Plan - Assessment (1) Acute hypokalemia Code(s): E87.6 - Hypokalemia Status: Acute (2) Syncope Code(s): R55 - Syncope and collapse Status: Acute - Plan 72-year-old white male being admitted for severe hypokalemia with presyncope Severe hypokalemia and acute hyponatremia -Likely combination of alcohol intake and diuretics -Potassium improved to 3.1 today with sodium of 131 -Hold spironolactone and lisinopril, hold metolazone and Lasix -also due to hypotension -Recheck BMP in the morning ML -Creatinine elevated at 1.51, was WNL on previous day -Avoid nephrotoxic agents -Holding Lisinopril and Lasix Coronary artery disease/CHF -Will continue Coreg once BP stabilized A. fib -Continue Coumadin -Pharmacy consult Hypertension -Has been hypotensive -Holding home BP meds Presyncope -Orthostatic vital signs with positive from supine to sitting position with drop in systolic blood pressure from 112-82 Left lower leg cellulitis -At this point clinically resolved and legs appear to have chronic venous status /chronic dermatitis findings -Continue home doxycycline COPD Albuterol as needed, oxygen supplementation as needed, 2 L at home at baseline Anxiety -Continue home sertraline and trazodone (at lower dose) DVT prophylaxis On Coumadin (2) Syncope Qualifiers: Syncope type: unspecified Qualified Code(s): R55 - Syncope and collapse
[2018-05-28] MEDS ORDERED: Warfarin Consult Pharmacy OTHER PRN (16:37)
[2018-05-28 18:08] LABS: INR 1.8 Ratio; Prothrombin Time 18.7 sec (9.8-11.6)
[2018-05-28] MEDS: Gabapentin 300 MG Capsule PO SCH (21:06)
[2018-05-29 05:52] LABS: Hematocrit 27.2 % (39.0-51.0); Hemoglobin 9.4 gm/dL (13.0-17.0); Mean Corpuscular HGB Conc 34.5 % (32.0-36.0); Mean Corpuscular Hemoglobin 37.8 pg (27.0-34.0); Mean Corpuscular Volume 109.5 fL (80.0-100.0); Platelet Count 147 th/mm3 (150-450); Red Blood Count 2.48 mil/mm3 (4.50-5.90); Red Cell Distribution Width 20.1 % (11.6-17.2); White Blood Count 6.4 th/mm3 (4.0-11.0)
[2018-05-29 05:56] LABS: INR 1.7 Ratio; Prothrombin Time 17.4 sec (9.8-11.6)
[2018-05-29 06:18] LABS: Calcium 8.4 mg/dL (8.5-10.1); Carbon Dioxide 35.5 meq/L (21.0-32.0); Potassium 3.8 meq/L (3.5-5.1)
--- NOTE | 2018-05-29 07:34 | P.PN ---
Subjective Interval history: Patient seen and examined this morning. States no complaints. No chest pain, shortness of breath, dizziness. 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 Physical Exam Vital signs: Vital Signs 05/28/18 08:00 05/28/18 09:00 05/28/18 12:00 Temperature 96.4 F L 97.1 F L Pulse Rate 72 54 L 73 Respiratory Rate 20 19 Blood Pressure 99/53 L 98/56 L Pulse Oximetry 99 98 05/28/18 12:24 05/28/18 16:00 05/28/18 20:00 Temperature 96.2 F L 98.1 F Pulse Rate 70 72 Respiratory Rate 20 18 Blood Pressure 99/64 L 115/63 Pulse Oximetry 99 98 98 05/29/18 00:00 05/29/18 04:00 Temperature 97.4 F L 97.5 F L Pulse Rate 72 73 Respiratory Rate 16 18 Blood Pressure 115/56 L 115/56 L Pulse Oximetry 97 100 Intake & Output 05/28/18 05/29/18 05/29/18 18:59 06:59 18:59 Intake Total 560 / 560 660 / 660 Output Total 650 / 650 1650 / 1650 Balance -90 / -90 -990 / -990 Weight 115.747 kg 114.5 kg Intake: Oral 560 / 560 660 / 660 Output: Urine 650 / 650 1650 / 1650 Other: Date of Last Bowel Movement 05/27/18 Narrative: Gen: Patient lying in bed in NAD, nasal cannula in place Skin: Warm and dry CV: Regular rate and rhythm Resp: CTAB, unlabored breathing Abd: Normoactive bowel sounds, NTTP Ext: No cyanosis or edema, calves nontender to palpation Psych: Normal affect, a little restless Results - Labs CBC & Chem 7: 05/29/18 04:52 05/29/18 04:52 Laboratory Results - last 24 hr 05/28/18 05/29/18 05/29/18 17:47 04:52 04:52 WBC 6.4 RBC 2.48 L Hgb 9.4 L Hct 27.2 L MCV 109.5 H MCH 37.8 H MCHC 34.5 RDW 20.1 H Plt Count 147 L MPV 7.0 PT 18.7 H D INR 1.8 Sodium 135 L Potassium 3.8 Chloride 93 L Carbon Dioxide 35.5 H Anion Gap 7 BUN 11 Creatinine 0.91 Estimated GFR 82 L Random Glucose 103 Calcium 8.4 L 05/29/18 04:52 WBC RBC Hgb Hct MCV MCH MCHC RDW Plt Count MPV PT 17.4 H INR 1.7 Sodium Potassium Chloride Carbon Dioxide Anion Gap BUN Creatinine Estimated GFR Random Glucose Calcium Assessment and Plan - Assessment (1) Acute hypokalemia Code(s): E87.6 - Hypokalemia Status: Acute (2) Syncope Code(s): R55 - Syncope and collapse Status: Acute - Plan 72-year-old white male being admitted for severe hypokalemia with presyncope Severe hypokalemia and acute hyponatremia -Likely combination of alcohol intake and diuretics -Potassium improved to 3.8 today with sodium of 135 -Hold spironolactone and lisinopril, hold metolazone and Lasix also due to hypotension -Recheck BMP in the morning ML -Creatinine elevated wnl at 0.91 today -Avoid nephrotoxic agents Coronary artery disease/CHF -Will continue Coreg once BP stabilized A. fib -Continue Coumadin -Pharmacy consult Hypertension -Has been hypotensive -Holding home BP meds Presyncope -Orthostatic vital signs with positive from supine to sitting position with drop in systolic blood pressure from 112 to 82 Left lower leg cellulitis -At this point clinically resolved and legs appear to have chronic venous status /chronic dermatitis findings -Continue home doxycycline until completion of dose COPD Albuterol as needed, oxygen supplementation as needed, 2 L at home at baseline Anxiety -Continue home sertraline and trazodone (at lower dose) DVT prophylaxis On Coumadin Addendum: Patient should have been ready for discharge but all his BP medications were administered because his BP had increased to 145/63. Soon afterwards, his BP reduced to 84/51. He was administered a 500ml NS bolus and will be reassessed if he is safe for discharge home. (2) Syncope Qualifiers: Syncope type: unspecified Qualified Code(s): R55 - Syncope and collapse
--- NOTE | 2018-05-29 08:31 | XR ---
EXAM DATE: 05/29/2018 8:26 AM EDT AGE/SEX: 72 years / Male INDICATIONS: . Shortness of breath. CLINICAL DATA: This is the patient's initial encounter. Patient reports that signs and symptoms have been present for 1 day and indicates a pain score of 0/10. MEDICAL/SURGICAL HISTORY: None. CABG. Pleurodesis. 5 bypass, 5 stents. COMPARISON: C, CHEST 1V SINGLE AP, 05/25/2018. . FINDINGS: Cardiomegaly, sternotomy wires and aortic calcification. Pacer/ICD device from a left subclavian horton svenous approach again noted. No consolidation or effusion. CONCLUSION: Negative examination. Electronically signed by: Vicente Reece MD 05/29/2018 8:30 AM EDT
[2018-05-29] MEDS: Lisinopril 5 MG Tablet PO SCH (09:47)
[2018-05-29] MEDS: Carvedilol 12.5 MG Tablet PO SCH (09:47)
[2018-05-29] MEDS: metOLazone 5 MG Tablet PO SCH (09:47)
[2018-05-29] MEDS: Furosemide 20 MG Tablet PO SCH (09:47)
[2018-05-29] MEDS: Pantoprazole Sodium 20 MG DR Tablet PO SCH (09:48)
[2018-05-29] MEDS: Sertraline 100 MG Tablet PO SCH (09:48)
[2018-05-29] MEDS: Spironolactone 25 MG Tablet PO SCH (09:53)
[2018-05-29] MEDS ORDERED: Sodium Chlor 0.9% Inj 500 ML IV.SIG SCH (13:00)
[2018-05-29] MEDS ORDERED: Sod Chloride 0.9% Inj 500 ML IV.SIG ONE (14:30)
[2018-05-29] MEDS ORDERED: Sod Chloride 0.9% Inj 1,000 ML IV.SIG SCH (16:30)
[2018-05-29] MEDS: Gabapentin 300 MG Capsule PO SCH (20:00)
[2018-05-30] MEDS: Acetaminophen 325 MG Tablet PO PRN ×2 (04:33→09:35)
[2018-05-30 06:39] LABS: INR 1.5 Ratio; Prothrombin Time 15.5 sec (9.8-11.6)
[2018-05-30 06:49] LABS: Anion Gap 6 meq/L (5-15); Blood Urea Nitrogen 9 mg/dL (7-18); Calcium 8.2 mg/dL (8.5-10.1); Carbon Dioxide 33.5 meq/L (21.0-32.0); Chloride 93 meq/L (98-107); Glomerular Filtration Rate Greater Than 89 mL/min (>89); Glucose,Random 117 mg/dL (74-106); Sodium 132 meq/L (136-145)
[2018-05-30 09:12] VITALS: PULSE 71
[2018-05-30] MEDS: Pantoprazole Sodium 20 MG DR Tablet PO SCH (09:35)
[2018-05-30] MEDS: Sertraline 100 MG Tablet PO SCH (09:36)
--- NOTE | 2018-05-30 11:59 | P.PNIM ---
Subjective Interval history: Patient says he is feeling well. Denies any chest pain or shortness of breath. Denies lightheadedness or dizziness. Would like to go home. Physical Exam Vital signs: Vital Signs 05/29/18 12:00 05/29/18 16:00 05/29/18 20:00 Temperature 98.5 F 97.3 F L 98.7 F Pulse Rate 70 70 71 Respiratory Rate 18 18 18 Blood Pressure 83/51 L 86/56 L 104/50 L Pulse Oximetry 97 99 96 05/30/18 00:00 05/30/18 04:00 05/30/18 08:00 Temperature 98.4 F 97.6 F 97.7 F Pulse Rate 77 72 71 Respiratory Rate 16 18 20 Blood Pressure 94/56 L 120/55 L 118/62 Pulse Oximetry 97 96 98 05/30/18 09:51 Temperature Pulse Rate Respiratory Rate Blood Pressure Pulse Oximetry 98 Intake & Output 05/29/18 05/30/18 05/30/18 18:59 06:59 18:59 Intake Total 1360 / 1360 1840 / 1840 Output Total 500 / 500 1700 / 1700 Balance 860 / 860 140 / 140 Weight 115.9 kg Intake: IV 1000 / 1000 NS Inj 1,000 ML @ Wide Open IV. 1000 / 1000 SIG BOLUS HE Rx#:[id number] Oral 1360 / 1360 840 / 840 Output: Urine 500 / 500 1700 / 1700 Other: # Voids 2 Date of Last Bowel Movement 05/29/18 05/29/18 05/29/18 # Bowel Movements 1 Narrative: GENERAL: Sitting up on edge of bed. Appears comfortable. SKIN: Warm and dry. HEAD: Normocephalic. EYES: No scleral icterus. No injection or drainage. NECK: Supple, trachea midline. No JVD. CARDIOVASCULAR: Regular rate and rhythm without murmurs, gallops, or rubs. RESPIRATORY: Breath sounds equal bilaterally. No accessory muscle use. GASTROINTESTINAL: Abdomen soft, non-tender, nondistended. MUSCULOSKELETAL: No cyanosis. Trace peripheral edema. Left lower extremity cellulitis appears very faint erythema. BACK: Nontender without obvious deformity. No CVA tenderness. Results - Labs CBC & Chem 7: 05/29/18 04:52 05/30/18 05:20 Laboratory Results - last 24 hr 05/30/18 05/30/18 05:20 Unknown PT 15.5 H INR 1.5 Sodium 132 L Potassium 4.0 Chloride 93 L Carbon Dioxide 33.5 H Anion Gap 6 BUN 9 Creatinine 0.81 Estimated GFR Greater than 89 Random Glucose 117 H Calcium 8.2 L Assessment and Plan - Plan 72-year-old white male being admitted for severe hypokalemia with presyncope //Severe hypokalemia and acute hyponatremia -Likely combination of alcohol intake and diuretics -Potassium improved to 3.8 today with sodium of 135 -Hold spironolactone and lisinopril, hold metolazone and Lasix also due to hypotension -Recheck BMP in the morning = 05/30. Labs overall stable. //ML -Creatinine elevated wnl at 0.91 today -Avoid nephrotoxic agents = 05/30. Creatinine 0.8 today. //Coronary artery disease/CHF -Will start on low-dose Coreg 3.125 twice daily //A. fib -Continue Coumadin -Pharmacy consult //Hypertension -Has been hypotensive -Holding home BP meds //Presyncope -Orthostatic vital signs with positive from supine to sitting position with drop in systolic blood pressure from 112 to 82 //Left lower leg cellulitis -At this point clinically resolved and legs appear to have chronic venous status /chronic dermatitis findings -Continue home doxycycline until completion of dose //COPD Albuterol as needed, oxygen supplementation as needed, 2 L at home at baseline //Anxiety -Continue home sertraline and trazodone (at lower dose) //DVT prophylaxis On Coumadin Discussed Condition With: Patient, nurse Discharge Planning: Discharge home in good condition.
--- NOTE | 2018-05-30 12:06 | P.DS ---
Date of admission: 05/26/18 08:45 Primary care physician: [facility] Brief History from admission: 72-year-old white male being her for severe hypokalemia and presyncope. Patient is not a reliable historian. Patient was in his usual state of health until earlier today when he was exiting 1 of his doctors offices at the [place] when he is arms and legs began tremoring and was unable to maintain his balance and fell backwards landing on his bottom breaking his fall and then striking his head. He denies having any substantial headaches or any nausea vomiting post fall. Denies having any coughing or shortness of breath or fevers. Says some people came to help him and called 911 and brought him to the ER here. Patient says he is taking an antibiotic for a left lower leg infection. He smells very malodorous and admits that he has not taken a full shower or a full bath, says he is only doing cloth based wiping only on his torso and not his left leg. Says he has a nurse coming out about 3 times a week to address his left leg. He thinks he is taking doxycycline. Says he takes a number of medications but cannot know their names. Lives by himself, stepdaughter is present part-time. Says he wears 2 L of oxygen at home. Pt says he drinks 1-2 drinks each night. Says he takes Coumadin for A. fib. In the Emergency department he had a bandemia noted but was afebrile with no elevated white count. EKG which and apparently reviewed showed a paced rhythm. CXR which I independently reviewed showed no acute infiltrates, radiology however read a left streaky infiltrate. CT head was performed which showed no acute findings. DS: Summary Hospital Course: Patient was admitted with severe hypokalemia 1.9 on admission. This is likely secondary to his diuretics as well as alcohol. This resolved with aggressive replacement. Blood pressure medications were adjusted, potassium supplementation was increased. Potassium levels improved. Patient with hypernatremia of 130 on admission, remained stable in the low 130s during admission. Patient did have an episode of hypotension prior to discharge which resolved after 500 mL normal saline. Blood pressure medications were adjusted with improvement in blood pressure. Patient has orthostatic hypotension and was instructed on safe standing/ambulation. Patient will need to follow-up with primary care as outpatient, as well as cardiology.. Problem based summary from most recent progress note, please see below. 72-year-old white male being admitted for severe hypokalemia with presyncope //Severe hypokalemia and acute hyponatremia -Likely combination of alcohol intake and diuretics -Potassium improved to 3.8 today with sodium of 135 -Hold spironolactone and lisinopril, hold metolazone and Lasix also due to hypotension -Recheck BMP in the morning = 05/30. Labs overall stable. //ML -Creatinine elevated wnl at 0.91 today -Avoid nephrotoxic agents = 05/30. Creatinine 0.8 today. //Coronary artery disease/CHF -Will start on low-dose Coreg 3.125 twice daily //A. fib -Continue Coumadin -Pharmacy consult //Hypertension -Has been hypotensive -Holding home BP meds //Presyncope -Orthostatic vital signs with positive from supine to sitting position with drop in systolic blood pressure from 112 to 82 //Left lower leg cellulitis -At this point clinically resolved and legs appear to have chronic venous status /chronic dermatitis findings -Continue home doxycycline until completion of dose //COPD Albuterol as needed, oxygen supplementation as needed, 2 L at home at baseline //Anxiety -Continue home sertraline and trazodone (at lower dose) //DVT prophylaxis On Coumadin Discussed Condition With: Patient, nurse Discharge Planning: Discharge home in good condition. - Time Spent with Patient Total time spent providing and/or coordinating discharge services: Greater than 30 minutes - Quality: VTE Deep Vein Thrombosis/Pulmonary Embolism Present on Admission: No Exam Vital signs: Vital Signs 05/29/18 16:00 05/29/18 20:00 05/30/18 00:00 Temperature 97.3 F L 98.7 F 98.4 F Pulse Rate 70 71 77 Respiratory Rate 18 18 16 Blood Pressure 86/56 L 104/50 L 94/56 L Pulse Oximetry 99 96 97 05/30/18 04:00 05/30/18 08:00 05/30/18 09:51 Temperature 97.6 F 97.7 F Pulse Rate 72 71 Respiratory Rate 18 20 Blood Pressure 120/55 L 118/62 Pulse Oximetry 96 98 98 Intake & Output 05/29/18 05/30/18 05/30/18 18:59 06:59 18:59 Intake Total 1360 / 1360 1840 / 1840 Output Total 500 / 500 1700 / 1700 Balance 860 / 860 140 / 140 Weight 115.9 kg Intake: IV 1000 / 1000 NS Inj 1,000 ML @ Wide Open IV. 1000 / 1000 SIG BOLUS HE Rx#:[id number] Oral 1360 / 1360 840 / 840 Output: Urine 500 / 500 1700 / 1700 Other: # Voids 2 Date of Last Bowel Movement 05/29/18 05/29/18 05/29/18 # Bowel Movements 1 Results Procedures completed during hospitalization: No invasive procedures. Labs on day of discharge: Labs from last 24 hours 05/30/18 05/30/18 Unknown 05:20 PT 15.5 H INR 1.5 Sodium 132 L Potassium 4.0 Chloride 93 L Carbon Dioxide 33.5 H Anion Gap 6 BUN 9 Creatinine 0.81 Estimated GFR Greater than 89 Random Glucose 117 H Calcium 8.2 L - Impressions ITS Impressions Cervical Spine CT 05/25/18 12:49 CONCLUSION: 1. No acute fracture or subluxation. 2. Multilevel degenerative spondylosis of the lower cervical spine with multilevel facet arthropathy, as above. 3. Bulky carotid artery calcified plaque. Head CT 05/25/18 12:49 CONCLUSION: 1. Negative CT Head non contrast. . Chest X-Ray 05/29/18 06:00 CONCLUSION: Negative examination. Discharge Plan - Discharge Disposition Patient Disposition: 01 Discharge Home - Discharge Condition Condition: Stable - Discharge Order Discharge Orders: Discharge Order (Routine); Ordered 05/30/18 Ordered By: Rei Glover - Discharge Details Anticipated Discharge Date: 05/30/18 - Physicians Team Primary Care Provider: [facility] Attending Provider: Rei Glover Other Providers: Yasmin Hoffman ; Jay Martell MD
[2018-05-30 13:35] VITALS: BP 116/59; RESP 18; TEMP 97.9; O2SAT 99
== END 2018-05-30 15:00 | disposition home or self-care (01) ==
LOC: NEPC 12:37 → INTOOBSV 15:52 → NEDA 15:52 → N04 19:11
PROVIDERS: ADMIT Internal Medicine; ATTEND Internal Medicine
DX: F41.9 Anxiety disorder, unspecified; J44.9 Chronic obstructive pulmonary disease, unspecified; Z95.1 Presence of aortocoronary bypass graft; Z95.5 Presence of coronary angioplasty implant and graft; E11.9 Type 2 diabetes mellitus without complications; I25.10 Atherosclerotic heart disease of native coronary artery without angina pectoris; I11.0 Hypertensive heart disease with heart failure; I50.9 Heart failure, unspecified; E87.6 Hypokalemia; E87.1 Hypo-osmolality and hyponatremia; M54.9 Dorsalgia, unspecified; Z91.81 History of falling; N17.9 Acute kidney failure, unspecified; I87.2 Venous insufficiency (chronic) (peripheral); T50.2X5A Adverse effect of carbonic-anhydrase inhibitors, benzothiadiazides and other diuretics, initial encounter; F17.210 Nicotine dependence, cigarettes, uncomplicated; I95.1 Orthostatic hypotension; Z99.81 Dependence on supplemental oxygen; Z79.82 Long term (current) use of aspirin; I48.91 Unspecified atrial fibrillation; G89.29 Other chronic pain; Z79.01 Long term (current) use of anticoagulants